=== PATIENT | female | born 1965 | race Hispanic/Latino ===

== ENCOUNTER 2018-02-06 11:36 | Inpatient (IN) | payer BC, OTHER ==
[2018-02-06] MEDS ORDERED: Sodium Chloride 0.9% 1,000 ML IV STA (12:07)
[2018-02-06 12:38] LABS: BASO # 0.1 K/uL (0.0-0.2); BASO % 0.7 % (0.0-2.0); EOS # 0.2 K/uL (0.0-0.7); EOS % 1.7 % (0.0-4.0); HEMOGLOBIN 13.8 g/dL (12.0-16.0); LYMPH # 0.7 K/uL (1.0-4.3); LYMPH % 5.1 % (20.0-40.0); MEAN CELL VOLUME 83.2 fl (81.0-99.0); MEAN CORPUSCULAR HEMOGLOBIN 27.6 pg (27.0-31.0); MEAN CORPUSCULAR HGB CONC 33.2 g/dL (33.0-37.0); MEAN PLATELET VOLUME 8.9 fl (7.2-11.7); MONO # 1.5 K/uL (0.0-0.8); MONO % 10.9 % (0.0-10.0); NEUT # 10.8 K/uL (1.8-7.0); NEUT % 81.6 % (50.0-75.0); PLATELET COUNT 291 K/uL (130-400); RED CELL DISTRIBUTION WIDTH 14.7 % (11.5-14.5); WHITE BLOOD COUNT 13.3 K/uL (4.8-10.8)
[2018-02-06 12:42] LABS: ALB/GLOB RATIO 1.1 (1.0-2.1); ALBUMIN 3.9 g/dL (3.5-5.0); ALT/SGPT 20 U/L (9-52); AST/SGOT 21 U/L (14-36); BLOOD UREA NITROGEN 16 mg/dl (7-17); CALCIUM 9.4 mg/dL (8.4-10.2); GFR NON-AFRICAN AMERICAN > 60; LIPASE 49 U/L (23-300)
--- NOTE | 2018-02-06 13:15 | CT ---
Date of service: 02/06/2018 PROCEDURE: CT HEAD WITHOUT CONTRAST. HISTORY: ?seizure COMPARISON: None available. TECHNIQUE: Axial computed tomography images were obtained through the head/brain without intravenous contrast. Radiation dose: Total exam DLP = 815.74 mGy-cm. This CT exam was performed using one or more of the following dose reduction techniques: Automated exposure control, adjustment of the mA and/or kV according to patient size, and/or use of iterative reconstruction technique. FINDINGS: HEMORRHAGE: No intracranial hemorrhage. BRAIN: Normal corticomedullary differentiation is identified throughout the brain with posterior fossa contents unremarkable. There is no suspicious extra-axial fluid collection. Limited leftward midline shift is identified at the level of the bilateral frontal horns of the lateral ventricles as discussed in ventricular section be low. Etiology may reflect intraventricular cyst right lateral ventricle. No parenchymal edema is identified with brainstem negative appearing. VENTRICLES: There is mild dilatation of the right frontal horn and body of the right lateral ventricle with limited 8 mm leftward midline shift at the level of frontal horns returning to normal at by the posterior portion of the body of the bilateral lateral ventricles with straight represent intraventricular arachnoid cyst or other intraventricular cyst. CALVARIUM: Unremarkable. PARANASAL SINUSES: Unremarkable as visualized. No significant inflammatory changes. MASTOID AIR CELLS: Unremarkable as visualized. No inflammatory changes. OTHER FINDINGS: None. 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 No parenchymal edema. Brain otherwise appears negative. MRI brain without contrast may be utilized for follow-up when feasible.
[2018-02-06] MEDS ORDERED: Potassium Chloride 20 mEq ER Tab PO ONE ×2 (13:33→15:01)
--- NOTE | 2018-02-06 14:00 | RAD ---
Date of service: 02/06/2018 HISTORY: cough COMPARISON: No prior. FINDINGS: LUNGS: No active pulmonary disease. PLEURA: No significant pleural effusion identified, no pneumothorax apparent. CARDIOVASCULAR: No radiographic findings to suggest acute or significant cardiovascular disease. OSSEOUS STRUCTURES: No significant abnormalities. VISUALIZED UPPER ABDOMEN: Normal. OTHER FINDINGS: None. IMPRESSION: No active disease.
[2018-02-06 14:28] LABS: ANISOCYTOSIS SLIGHT; BANDS 1 % (0-2); BASOPHIL 1 % (0-2); EOSINOPHIL 1 % (0-7); LYMPHOCYTE 6 % (20-50); MONOCYTE 10 % (0-10); NEUTROPHIL 80 % (42-75); PLASMACYTES 1 (0-0); PLATELET ESTIMATE NORMAL (NORMAL); TOTAL CELLS COUNTED 100
--- NOTE | 2018-02-06 14:40 | ED PDOC ---
Syncope/Near Syncope/Dizziness Time Seen by Provider: 02/06/18 11:54 Chief Complaint (Nursing): Syncope Chief Complaint (Provider): i passed out, flu like symptoms History Per: Patient History/Exam Limitations: no limitations Onset/Duration Of Symptoms: Gradual Current Symptoms Are (Timing): Intermittent Episodes Activity At Onset Of Symptoms: Had Just Stood up Associated Symptoms Preceding Syncopal Episode: Lightheadedness Possible Causative Factor(s): Lightheaded W/Change In Head Position Fall Associated With With Symptoms: No Injury As Result Of Fall Severity: Moderate Additional Complaint(s): 52yo female hx chronic migranes presents from urgent care after witnessed syncopal episode with possible seizure like activity. She notes congestion, sore throat, generalized weakness and malaise for last 4 days prior, had 2 episodes vomiting over weekend denies diarrhea, neck pain or rash. Notes mild headache but not as severe as prior headaches. Admits to not seeing PMD in awhile, never saw neurology. Believes had MRI brain many years ago for pituitary issue after irregular menses. Past Medical History Reviewed: Historical Data, Nursing Documentation, Vital Signs Vital Signs: Last Vital Signs Temp 98.6 F 02/06/18 11:39 Pulse 74 02/06/18 11:39 Resp 16 02/06/18 11:39 BP 104/79 02/06/18 11:39 Pulse Ox 99 02/06/18 11:39 - Medical History Other PMH: pituitary issues in past? migranes - Family History Family History: States: Unknown Family Hx - Social History Current smoker - smoking cessation education provided: No - Immunization History Hx Tetanus Toxoid Vaccination: No Hx Influenza Vaccination: No Hx Pneumococcal Vaccination: No - Home Medications Home Medications: Ambulatory Orders Medication Instructions Recorded Aspirin/Acetaminophen/Caffeine 2 tab PO DAILY PRN 02/06/18 [Excedrin Migraine Caplet] Multivitamin [Multi-Vitamin Daily] 1 tab PO DAILY 02/06/18 Phenylephrine HCl/Acetaminophn [Eq 2 tab PO Q4 PRN 02/06/18 Suphedrine PE Caplet] - Allergies Allergies/Adverse Reactions: Allergies Allergy/AdvReac Type Severity Reaction Status Date / Time No Known Allergies Allergy Verified 02/06/18 11:39 Review of Systems Constitutional: Positive for: Chills, Weakness, Malaise ENT: Positive for: Throat Pain. Negative for: Throat Swelling Cardiovascular: Negative for: Chest Pain Respiratory: Positive for: Cough. Negative for: Shortness of Breath Gastrointestinal: Positive for: Vomiting. Negative for: Abdominal Pain Genitourinary Female: Negative for: Dysuria, Frequency Musculoskeletal: Positive for: Other (myalgias). Negative for: Neck Pain, Back Pain Neurological: Positive for: Seizures, Altered Mental Status (syncope), Headache, Dizziness. Negative for: Weakness, Incoordination, Change in Speech Psych: Negative for: Suicidal ideation Physical Exam - Reviewed Nursing Documentation Reviewed: Yes Vital Signs Reviewed: Yes - Physical Exam Appears: Positive for: Non-toxic (dry appearing), No Acute Distress Head Exam: Positive for: ATRAUMATIC, NORMAL INSPECTION, NORMOCEPHALIC Skin: Positive for: Normal Color, Warm, DRY Eye Exam: Positive for: EOMI, Normal appearance, PERRL ENT: Positive for: Normal ENT Inspection Neck: Positive for: Normal, Painless ROM Cardiovascular/Chest: Positive for: Regular Rate, Rhythm Respiratory: Positive for: CNT, Normal Breath Sounds Pulses-Radial (L): 3+/4+ Pulses-Radial (R): 3+/4+ Gastrointestinal/Abdominal: Positive for: Soft. Negative for: Tenderness Back: Positive for: Normal Inspection Extremity: Positive for: Normal ROM Neurologic/Psych: Positive for: Alert, Oriented, Cerebellar Tests (slow but intact). Negative for: Motor/Sensory Deficits, Aphasia, Facial Droop - Laboratory Results Result Diagrams: 02/07/18 04:20 02/07/18 04:20 - ECG ECG: Positive for: Interpreted By Me ECG Rhythm: Positive for: Sinus Rhythm, Nonspecific Changes Interpretation Of ECG: frequent PVCs Rate: 69 O2 Sat by Pulse Oximetry: 99 Pulse Ox Interpretation: Normal Medical Decision Making Medical Decision Making: workup for syncope with ?seizure like activity initiated in setting of recent flu like illness Labs reviewed K+ replaced Flu neg Mild elev WBC Cardiac rhythm strip with frequent ectopy CT brain abnormal, d/w Dr Guzmán recommends starting topamax 25mg and admit given abnormal CT brain and possible seizure like activity with syncope D/w Dr Fox contact center associate medicine Disposition - Clinical Impression Clinical Impression: Syncope and collapse, Flu-like symptoms, Hypokalemia - Patient ED Disposition Is Patient to be Admitted: No Counseled Patient/Family Regarding: Studies Performed, Diagnosis, Need For Followup - Disposition Disposition Time: 14:01 Condition: FAIR - Pt Status Changed To: Hospital Disposition Of: Inpatient - Admit Certification Admit to Inpatient:: After my assessment, the patient will require hospitalization for at least two midnights. This is because of the severity of symptoms shown, intensity of services needed, and/or the medical risk in this patient being treated as an outpatient. - POA Present On Arrival: None
[2018-02-06] MEDS ORDERED: Gadodiamide 287 MG/ML VIAL (15ML) IV ONE (15:53)
--- NOTE | 2018-02-06 17:06 | MRI ---
Date of service: 02/06/2018 PROCEDURE: MRI BRAIN WITH AND WITHOUT CONTRAST HISTORY: abnormal CT brain w new onset seizure/syncope COMPARISON: None available. TECHNIQUE: Multiplanar, multisequence MR images of the brain were obtained with and without intravenous contrast enhancement. FINDINGS: HEMORRHAGE: None DWI: No evidence of an acute or early subacute infarction. BRAIN PARENCHYMA: Minimal 8 mm leftward shift of the midline structures at the level of the anterior body of the right lateral ventricle as well as the right frontal horn potentially on the basis of intra-articular arachnoid cyst or congenital anomaly as described below in the ventricle section. The remainder the ventricular system is unremarkable including the 3rd and 4th ventricles. Normal corticomedullary differentiation is appreciated. No suspicious sultana white matter signal abnormality above or below the tentorium including throughout the brainstem. Midline brain anatomy appears grossly nonfocal. There is a nonspecific convex upward border of the pituitary gland, usually seen in younger female patients, however, no abnormal enhancement is seen throughout the pituitary gland as imaged. ENHANCEMENT: No abnormal intracranial enhancement. VENTRICLES: No definite hydrocephalus. There is dilatation of the right frontal horn and proximal to mid body of the right lateral ventricle with the atria appearing symmetric. The right temporal horn appears slightly more prominent than the left. No restricted diffusion is seen related to the right lateral ventricle but there is suggestion of active CSF flow at this region and this may not represent an arachnoid cyst but a congenital anomaly. There is no abnormal intracranial enhancement appreciated throughout the exam. Note, asymmetry in the medial temporal lobes resulting in mild prominence of the right temporal horn may reflect medial temporal sclerosis aside from other findings. No intrinsic signal abnormality is appreciated at the medial right temporal lobe however. CRANIUM: Unremarkable. ORBITS: Grossly unremarkable. PARANASAL SINUSES/MASTOIDS: Clear VASCULAR SYSTEM: Skull base flow voids intact. OTHER FINDINGS: None . 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 Clinically correlate further.
--- NOTE | 2018-02-06 22:22 | CARD ---
APPROVED REPORT Date of service: 02/06/2018 EKG Measurement Heart [id number] <Conclusion> Sinus rhythm with occasional premature ventricular complexes RSR' or QR pattern in V1 suggests right ventricular conduction delay Nonspecific T wave abnormality Prolonged QT Abnormal ECG
[2018-02-06 23:09] LABS: SQUAMOUS EPITHIAL < 1 /hpf (0-5); URINE AMORPHOUS SEDIMENT OCC /ul (<OCC); URINE BACTERIA RARE (<OCC); URINE BILIRUBIN NEGATIVE (NEGATIVE); URINE BLOOD MODERATE (NEGATIVE); URINE CLARITY CLOUDY (Clear); URINE COLOR YELLOW (YELLOW); URINE GLUCOSE (UA) NEG (Normal); URINE LEUKOCYTE ESTERASE NEG Leu/uL (Negative); URINE PROTEIN NEGATIVE (NEGATIVE); URINE UROBILINOGEN 0.2-1.0 mg/dL (0.2-1.0)
[2018-02-07 05:17] LABS: HEMOGLOBIN 13.1 g/dL (12.0-16.0); MEAN CELL VOLUME 84.6 fl (81.0-99.0); MEAN CORPUSCULAR HGB CONC 33.1 g/dL (33.0-37.0); RBC 4.69 Mil/uL (3.80-5.20); RED CELL DISTRIBUTION WIDTH 15.1 % (11.5-14.5); WHITE BLOOD COUNT 8.8 K/uL (4.8-10.8)
[2018-02-07 05:32] LABS: ALB/GLOB RATIO 1.1 (1.0-2.1); ALBUMIN 3.6 g/dL (3.5-5.0); ALT/SGPT 26 U/L (9-52); AST/SGOT 17 U/L (14-36); BLOOD UREA NITROGEN 12 mg/dl (7-17); CALCIUM 9.2 mg/dL (8.4-10.2); GFR NON-AFRICAN AMERICAN > 60; HDL CHOLESTEROL 49 MG/DL (30-70)
[2018-02-07 05:35] LABS: LDL CHOLESTEROL 87 mg/dL (0-129)
--- NOTE | 2018-02-07 08:19 | CP.PCM.HP ---
<Al Giraldo - Last Filed: 02/07/18 13:48> History of Present Illness - History of Present Illness History of Present Illness: 52 yo female hx chronic migranes presents to the ED after witnessed syncopal episode with seizure like activity. She endorsed congestion, sore throat, generalized weakness and malaise for last 4 days, and reported 2 nbnb episodes vomiting over weekend. Otherwise she denies diarrhea, neck pain or rash. Admited to not seeing PMD in a while, never saw neurology in the past. She reports believes had MRI brain many years ago for pituitary issue after irregular menses but unsure, will try to get records. PMD: Pedsneir. PMH: migraine FMH: noncontributory PSH: none NKDA Meds: see bellow. Present on Admission - Present on Admission Any Indicators Present on Admission: No Review of Systems - Review of Systems All systems: reviewed and no additional remarkable complaints except (HPI) Past Patient History - Past Medical History & Family History Past Medical History?: Yes - Past Social History Smoking Status: Never Smoked - HEMATOLOGICAL/ONCOLOGICAL Hx Cancer: Yes (skin cancer left breast area) - MUSCULOSKELETAL/RHEUMATOLOGICAL Hx Falls: Yes - PSYCHIATRIC Hx Substance Use: No - ANESTHESIA Hx Anesthesia: Yes Hx Anesthesia Reactions: No Meds Allergies/Adverse Reactions: Allergies Allergy/AdvReac Type Severity Reaction Status Date / Time No Known Allergies Allergy Verified 02/06/18 11:39 Physical Exam - Constitutional Appears: No Acute Distress - Head Exam Head Exam: NORMAL INSPECTION - Eye Exam Eye Exam: EOMI, PERRL - Respiratory Exam Respiratory Exam: Clear to Auscultation Bilateral - Cardiovascular Exam Cardiovascular Exam: REGULAR RHYTHM, +S1, +S2 - GI/Abdominal Exam GI & Abdominal Exam: Soft. absent: Distended, Tenderness - Extremities Exam Extremities exam: Negative for: calf tenderness, pedal edema - Neurological Exam Neurological exam: Alert, CN II-XII Intact, Oriented x3 - Psychiatric Exam Psychiatric exam: Normal Affect - Skin Skin Exam: Dry, Warm Results - Vital Signs Recent Vital Signs: Last Vital Signs Temp 97.9 F 02/07/18 08:05 Pulse 66 02/07/18 08:05 Resp 18 02/07/18 08:05 BP 149/82 02/07/18 08:05 Pulse Ox 98 02/07/18 08:05 - Labs Result Diagrams: 02/07/18 04:20 02/07/18 04:20 Labs: Laboratory Results - last 24 hr 02/06/18 02/06/18 02/06/18 12:15 12:15 12:15 WBC 13.3 H RBC 5.00 Hgb 13.8 Hct 41.6 MCV 83.2 MCH 27.6 MCHC 33.2 RDW 14.7 H Plt Count 291 MPV 8.9 Neut % (Auto) 81.6 H Lymph % (Auto) 5.1 L Story % (Auto) 10.9 H Eos % (Auto) 1.7 Baso % (Auto) 0.7 Neut # (Auto) 10.8 H Lymph # (Auto) 0.7 L Story # (Auto) 1.5 H Eos # (Auto) 0.2 Baso # (Auto) 0.1 Neutrophils % (Manual) 80 H Band Neutrophils % 1 Lymphocytes % (Manual) 6 L Monocytes % (Manual) 10 Eosinophils % (Manual) 1 Basophils % (Manual) 1 Plasma Cell % (Manual) 1 H Platelet Estimate Normal Anisocytosis (manual) Slight Sodium 138 Potassium 3.2 L Chloride 105 Carbon Dioxide 25 Anion Gap 11 BUN 16 Creatinine 0.6 L Est GFR ( Amer) > 60 Est GFR (Non-Af Amer) > 60 POC Glucose (mg/dL) Random Glucose 133 H Calcium 9.4 Phosphorus Magnesium 2.0 Total Bilirubin 0.5 AST 21 ALT 20 Alkaline Phosphatase 76 Total Creatine Kinase 35 Total Protein 7.2 Albumin 3.9 Globulin 3.4 Albumin/Globulin Ratio 1.1 Triglycerides Cholesterol LDL Cholesterol Direct HDL Cholesterol Lipase 49 Vitamin B12 TSH 3rd Generation Urine Color Urine Clarity Urine pH Ur Specific [place] Urine Protein Urine Glucose (UA) Urine Ketones Urine Blood Urine Nitrate Urine Bilirubin Urine Urobilinogen Ur Leukocyte Esterase Urine RBC (Auto) Urine Microscopic WBC Ur Squamous Epith Cells Amorphous Sediment Urine Bacteria Influenza Typ A,B (EIA) Negative for flu a/b 02/06/18 02/06/18 02/07/18 12:29 22:53 04:20 WBC 8.8 RBC 4.69 Hgb 13.1 Hct 39.7 MCV 84.6 MCH 28.0 MCHC 33.1 RDW 15.1 H Plt Count 289 MPV Neut % (Auto) Lymph % (Auto) Story % (Auto) Eos % (Auto) Baso % (Auto) Neut # (Auto) Lymph # (Auto) Story # (Auto) Eos # (Auto) Baso # (Auto) Neutrophils % (Manual) Band Neutrophils % Lymphocytes % (Manual) Monocytes % (Manual) Eosinophils % (Manual) Basophils % (Manual) Plasma Cell % (Manual) Platelet Estimate Anisocytosis (manual) Sodium Potassium Chloride Carbon Dioxide Anion Gap BUN Creatinine Est GFR ( Amer) Est GFR (Non-Af Amer) POC Glucose (mg/dL) 134 H Random Glucose Calcium Phosphorus Magnesium Total Bilirubin AST ALT Alkaline Phosphatase Total Creatine Kinase Total Protein Albumin Globulin Albumin/Globulin Ratio Triglycerides Cholesterol LDL Cholesterol Direct HDL Cholesterol Lipase Vitamin B12 TSH 3rd Generation Urine Color Yellow Urine Clarity Cloudy Urine pH 8.0 Ur Specific [place] 1.010 Urine Protein Negative Urine Glucose (UA) Neg Urine Ketones Negative Urine Blood Moderate Urine Nitrate Negative Urine Bilirubin Negative Urine Urobilinogen 0.2-1.0 Ur Leukocyte Esterase Neg Urine RBC (Auto) 11 H Urine Microscopic WBC 4 Ur Squamous Epith Cells < 1 Amorphous Sediment Occ H Urine Bacteria Rare Influenza Typ A,B (EIA) 02/07/18 04:20 WBC RBC Hgb Hct MCV MCH MCHC RDW Plt Count MPV Neut % (Auto) Lymph % (Auto) Story % (Auto) Eos % (Auto) Baso % (Auto) Neut # (Auto) Lymph # (Auto) Story # (Auto) Eos # (Auto) Baso # (Auto) Neutrophils % (Manual) Band Neutrophils % Lymphocytes % (Manual) Monocytes % (Manual) Eosinophils % (Manual) Basophils % (Manual) Plasma Cell % (Manual) Platelet Estimate Anisocytosis (manual) Sodium 140 Potassium 3.7 Chloride 108 H Carbon Dioxide 28 Anion Gap 8 L BUN 12 Creatinine 0.7 Est GFR ( Amer) > 60 Est GFR (Non-Af Amer) > 60 POC Glucose (mg/dL) Random Glucose 98 Calcium 9.2 Phosphorus 3.5 Magnesium 2.1 Total Bilirubin 0.4 AST 17 ALT 26 Alkaline Phosphatase 68 Total Creatine Kinase Total Protein 6.8 Albumin 3.6 Globulin 3.2 Albumin/Globulin Ratio 1.1 Triglycerides 84 Cholesterol 165 LDL Cholesterol Direct 87 HDL Cholesterol 49 Lipase Vitamin B12 657 TSH 3rd Generation 1.65 Urine Color Urine Clarity Urine pH Ur Specific [place] Urine Protein Urine Glucose (UA) Urine Ketones Urine Blood Urine Nitrate Urine Bilirubin Urine Urobilinogen Ur Leukocyte Esterase Urine RBC (Auto) Urine Microscopic WBC Ur Squamous Epith Cells Amorphous Sediment Urine Bacteria Influenza Typ A,B (EIA) Assessment & Plan - Assessment and Plan (Free Text) Assessment: 52 yo female patient with PMH of chronic migranes admitted due to syncope episode and seizure like episode. Plan: - admit to tele - continue plan as ordered - Neurology consulted, f/u recommds - Cardiology consulted f/u recommds - f/u labs and A1C in am Case discussed with Dr Fox. <Holger Fox - Last Filed: 02/08/18 03:17> Results - Vital Signs Recent Vital Signs: Last Vital Signs Temp 98.1 F 02/07/18 16:31 Pulse 74 02/07/18 16:31 Resp 16 02/07/18 16:31 BP 141/80 02/07/18 16:31 Pulse Ox 97 02/07/18 16:31 - Labs Result Diagrams: 02/07/18 04:20 02/07/18 04:20 Labs: Laboratory Results - last 24 hr 02/07/18 02/07/18 02/07/18 04:20 04:20 07:56 WBC 8.8 RBC 4.69 Hgb 13.1 Hct 39.7 MCV 84.6 MCH 28.0 MCHC 33.1 RDW 15.1 H Plt Count 289 Sodium 140 Potassium 3.7 Chloride 108 H Carbon Dioxide 28 Anion Gap 8 L BUN 12 Creatinine 0.7 Est GFR ( Amer) > 60 Est GFR (Non-Af Amer) > 60 Random Glucose 98 Hemoglobin A1c 5.3 Calcium 9.2 Phosphorus 3.5 Magnesium 2.1 Total Bilirubin 0.4 AST 17 ALT 26 Alkaline Phosphatase 68 Total Protein 6.8 Albumin 3.6 Globulin 3.2 Albumin/Globulin Ratio 1.1 Triglycerides 84 Cholesterol 165 LDL Cholesterol Direct 87 HDL Cholesterol 49 Vitamin B12 657 TSH 3rd Generation 1.65 Assessment & Plan - Assessment and Plan (Free Text) Assessment: Patient was personally seen and examined by me in rounds with residents. Available labs and diagnostic data reviewed. Case, Patient's condition and management plan discussed with residents in rounds. Agree with resident's progress note. Plan: As ordered.
[2018-02-07] MEDS ORDERED: Multivitamin With Minerals Tab PO SCH (09:00)
[2018-02-07] MEDS: Enoxaparin 40 mg Syringe SC SCH ×2 (09:45→09:47)
--- NOTE | 2018-02-07 13:10 | CP.PCM.CON ---
History of Present Illness - History of Present Illness History of Present Illness: Consultation for evaluation of episode of syncope in MD office HPI: 52 year old otherwise healthy white female who walked over 8 blocks in [place] to visit her PCP where she had an episode of diaphoretic spell accompanied with a feeling of heat going thru her and made her pass out. Review of Systems - Review of Systems Systems not reviewed;Unavailable: Acuity of Condition - Constitutional Constitutional: As Per HPI - EENT Eyes: As Per HPI Nose/Mouth/Throat: As Per HPI - Breasts Breasts: As Per HPI - Cardiovascular Cardiovascular: As Per HPI - Respiratory Respiratory: As Per HPI - Gastrointestinal Gastrointestinal: As Per HPI - Genitourinary Genitourinary: As Per HPI - Menstruation Menstruation: As Per HPI - Musculoskeletal Musculoskeletal: As Per HPI - Integumentary Integumentary: As Per HPI - Neurological Neurological: As Per HPI - Psychiatric Psychiatric: As Per HPI - Endocrine Endocrine: As Per HPI - Hematologic/Lymphatic Hematologic: As Per HPI Past Patient History - Past Medical History & Family History Past Medical History?: Yes - Past Social History Smoking Status: Never Smoked - HEMATOLOGICAL/ONCOLOGICAL Hx Cancer: Yes (skin cancer left breast area) - MUSCULOSKELETAL/RHEUMATOLOGICAL Hx Falls: Yes - PSYCHIATRIC Hx Substance Use: No - ANESTHESIA Hx Anesthesia: Yes Hx Anesthesia Reactions: No Meds Allergies/Adverse Reactions: Allergies Allergy/AdvReac Type Severity Reaction Status Date / Time No Known Allergies Allergy Verified 02/06/18 11:39 - Medications Medications: Current Medications Acetaminophen (Tylenol 325mg Tab) 650 mg PO Q6 PRN PRN Reason: Headache Enoxaparin Sodium (Lovenox) 40 mg SC DAILY RADHA; Protocol Last Admin: 02/07/18 09:47 Dose: Not Given Multivitamins/Minerals (Therapeutic-M Tab) 1 tab PO DAILY RADHA Last Admin: 02/07/18 09:45 Dose: 1 tab Physical Exam - Constitutional Appears: Well - Head Exam Head Exam: ATRAUMATIC, NORMAL INSPECTION, NORMOCEPHALIC - Eye Exam Eye Exam: EOMI, Normal appearance, PERRL Pupil Exam: NORMAL ACCOMODATION, PERRL - ENT Exam ENT Exam: Mucous Membranes Moist, Normal Exam - Neck Exam Neck exam: Positive for: Normal Inspection - Respiratory Exam Respiratory Exam: Clear to Auscultation Bilateral, NORMAL BREATHING PATTERN - Cardiovascular Exam Cardiovascular Exam: REGULAR RHYTHM, RRR, +S1, +S2, Systolic Murmur - GI/Abdominal Exam GI & Abdominal Exam: Normal Bowel Sounds, Soft. absent: Tenderness - Extremities Exam Extremities exam: Positive for: normal inspection - Back Exam Back exam: NORMAL INSPECTION - Neurological Exam Neurological exam: Alert, CN II-XII Intact, Normal Gait, Oriented x3, Reflexes Normal - Psychiatric Exam Psychiatric exam: Normal Affect, Normal Mood - Skin Skin Exam: Dry, Intact, Normal Color, Warm Results - Vital Signs Recent Vital Signs: Last Vital Signs Temp 98.2 F 02/07/18 12:29 Pulse 65 02/07/18 12:29 Resp 18 02/07/18 12:29 BP 149/88 02/07/18 12:29 Pulse Ox 95 02/07/18 12:29 - Labs Result Diagrams: 02/07/18 04:20 02/07/18 04:20 Labs: Laboratory Results - last 24 hr 02/06/18 02/06/18 02/07/18 12:15 22:53 04:20 WBC 8.8 RBC 4.69 Hgb 13.1 Hct 39.7 MCV 84.6 MCH 28.0 MCHC 33.1 RDW 15.1 H Plt Count 289 Neutrophils % (Manual) 80 H Band Neutrophils % 1 Lymphocytes % (Manual) 6 L Monocytes % (Manual) 10 Eosinophils % (Manual) 1 Basophils % (Manual) 1 Plasma Cell % (Manual) 1 H Platelet Estimate Normal Anisocytosis (manual) Slight Sodium Potassium Chloride Carbon Dioxide Anion Gap BUN Creatinine Est GFR ( Amer) Est GFR (Non-Af Amer) Random Glucose Hemoglobin A1c Calcium Phosphorus Magnesium Total Bilirubin AST ALT Alkaline Phosphatase Total Protein Albumin Globulin Albumin/Globulin Ratio Triglycerides Cholesterol LDL Cholesterol Direct HDL Cholesterol Vitamin B12 TSH 3rd Generation Urine Color Yellow Urine Clarity Cloudy Urine pH 8.0 Ur Specific [place] 1.010 Urine Protein Negative Urine Glucose (UA) Neg Urine Ketones Negative Urine Blood Moderate Urine Nitrate Negative Urine Bilirubin Negative Urine Urobilinogen 0.2-1.0 Ur Leukocyte Esterase Neg Urine RBC (Auto) 11 H Urine Microscopic WBC 4 Ur Squamous Epith Cells < 1 Amorphous Sediment Occ H Urine Bacteria Rare 02/07/18 02/07/18 04:20 07:56 WBC RBC Hgb Hct MCV MCH MCHC RDW Plt Count Neutrophils % (Manual) Band Neutrophils % Lymphocytes % (Manual) Monocytes % (Manual) Eosinophils % (Manual) Basophils % (Manual) Plasma Cell % (Manual) Platelet Estimate Anisocytosis (manual) Sodium 140 Potassium 3.7 Chloride 108 H Carbon Dioxide 28 Anion Gap 8 L BUN 12 Creatinine 0.7 Est GFR ( Amer) > 60 Est GFR (Non-Af Amer) > 60 Random Glucose 98 Hemoglobin A1c 5.3 Calcium 9.2 Phosphorus 3.5 Magnesium 2.1 Total Bilirubin 0.4 AST 17 ALT 26 Alkaline Phosphatase 68 Total Protein 6.8 Albumin 3.6 Globulin 3.2 Albumin/Globulin Ratio 1.1 Triglycerides 84 Cholesterol 165 LDL Cholesterol Direct 87 HDL Cholesterol 49 Vitamin B12 657 TSH 3rd Generation 1.65 Urine Color Urine Clarity Urine pH Ur Specific [place] Urine Protein Urine Glucose (UA) Urine Ketones Urine Blood Urine Nitrate Urine Bilirubin Urine Urobilinogen Ur Leukocyte Esterase Urine RBC (Auto) Urine Microscopic WBC Ur Squamous Epith Cells Amorphous Sediment Urine Bacteria Assessment & Plan (1) Syncope Assessment and Plan: etiology vasovagal orthostatics echo if echo normal can dc home outpt holter monitor Status: Acute (2) URI (upper respiratory infection) Status: Acute
[2018-02-07 16:32] VITALS: BP 141/80; PULSE 74; RESP 16; TEMP 98.1; O2SAT 97
--- NOTE | 2018-02-07 19:51 | CP.PCM.CON ---
History of Present Illness - History of Present Illness History of Present Illness: Neurology Consultation Note: Mrs. Hu is a 52-year-old woman with a past medical history of migraine headaches, who presented to the ED after an episode of loss of consciousness and witnessed seizure-like activity. She states that she went to her PCP's office and was feeling unwell. She sat down in the office and asked for a cup of water, she then dropped the cup, and lost consciousness and was witnessed having a seizure. She did not have any urinary/bowel incontinence or tongue biting. When she woke up both firsts were clenched. 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 She was started on Topamax since she also has a history of migraine and she may have had a seizure. Review of Systems - Constitutional Constitutional: As Per HPI - EENT Eyes: absent: As Per HPI, Blind Spots, Blurred Vision, Change in Vision, Decreased Night Vision, Diplopia, Discharge, Dry Eye, Exophthalmos, Floaters, Irritation, Itchy Eyes, Loss of Peripheral Vision, Pain, Photophobia, Requires Corrective Lenses, Sees Flashes, Spots in Vision, Tunnel Vision, Other Visual Disturbances, Loss of Vision, Other Ears: absent: As Per HPI, Decreased Hearing, Ear Discharge, Ear Pain, Tinnitus, Abnormal Hearing, Disequilibrium, Dizziness, Other Nose/Mouth/Throat: absent: As Per HPI, Epistaxis, Nasal Congestion, Nasal Discharge, Nasal Obstruction, Nasal Trauma, Nose Pain, Post Nasal Drip, Sinus Pain, Sinus Pressure, Bleeding Gums, Change in Voice, Dental Pain, Dry Mouth, Dysphagia, Halitosis, Hoarsness, Lip Swelling, Mouth Lesions, Mouth Pain, Odynophagia, Sore Throat, Throat Swelling, Tongue Swelling, Facial Pain, Neck Pain, Neck Mass, Other - Cardiovascular Cardiovascular: absent: As Per HPI, Acrocyanosis, Chest Pain, Chest Pain at Rest, Chest Pain with Activity, Claudication, Diaphoresis, Dyspnea, Dyspnea on Exertion, Edema, Irregular Heart Rhythm, Pain Radiating to Arm/Neck/Jaw, Leg Edema, Leg Ulcers, Lightheadedness, Orthopnea, Palpitations, Paroxysmal Nocturnal Dyspnea, Pedal Edema, Radiating Pain, Rapid Heart Rate, Slow Heart Ra te, Syncope, Other - Respiratory Respiratory: absent: As Per HPI, Cough, Dyspnea, Hemoptysis, Dyspnea on Exertion, Wheezing, Snoring, Stridor, Pain on Inspiration, Chest Congestion, Excessive Mucous Production, Change in Mucous Color, Pain with Coughing, Other - Gastrointestinal Gastrointestinal: absent: As Per HPI, Abdominal Pain, Belching, Bloating, Change in Bowel Habits, Change in Stool Character, Coffee Ground Emesis, Constipation, Cramping, Diarrhea, Dyspepsia, Dysphagia, Early Satiety, Excessive Flatus, Fecal Incontinence, Heartburn, Hematemesis, Hematochezia, Loose Stools, Melena, Nausea, Odynophagia, Temesmus, Vomiting, Other - Genitourinary Genitourinary: absent: As Per HPI, Change in Urinary Stream, Difficulty Urinating, Dysuria, Flank Pain, Hematuria, Pyuria, Nocturia, Urinary Incontinence, Urinary Frequency, Urinary Hesitance, Urinary Urgency, Voiding Freq/Small Amts, Freq UTI, Hx Renal/Bladder Calculi, Hx /Renal Surgery, Bladder Distension, Other - Musculoskeletal Musculoskeletal: absent: As Per HPI, Abnormal Gait, Arthralgias, Atrophy, Back Pain, Deformity, Joint Swelling, Limited Range of Motion, Loss of Height, Muscle Cramps, Muscle Weakness, Myalgias, Neck Pain, Numbness, Radiating Pain into Limb, Stiffness, Tingling, Other - Integumentary Integumentary: absent: As Per HPI, Acne, Alopecia, Bleeding Lesions, Change in Hair, Change in Nails, Change in Pigmentation, Changing Lesions, Dry Skin, Erythema, Furuncle, Hirsutism, Lesions, New Lesions, Non-Healing Lesions, Photosensitivity, Pruritus, Rash, Skin Pain, Skin Ulcer, Sores, Striae, Swelling, Unusual Bruising, Wounds, Jaundice, Other - Neurological Neurological: As Per HPI - Psychiatric Psychiatric: absent: As Per HPI, Abnormal Sleep Pattern, Anhedonia, Anxiety, Auditory Hallucinations, Behavioral Changes, Change in Appetite, Change in Libido, Confusion, Depression, Difficulty Concentrating, Hallucinations, Homicidal Ideation, Hopelessness, Irritability, Memory Loss, Mood Swings, Panic Attacks, Paranoia, Suicidal Ideation, Visual Hallucinations, Tactile Hallucinations, Other - Endocrine Endocrine: absent: As Per HPI, Change in Body Appearance, Change in Libido, Cold Intolorance, Deepening of Voice, Excessive Sweating, Fatigue, Flushing, Heat Intolorance, Increase in Ring/Shoe/Hat Size, Palpitations, Polydipsia, Polyphagia, Polyuria, Other - Hematologic/Lymphatic Hematologic: absent: As Per HPI, Easy Bleeding, Easy Bruising, Lymphadenopathy, Other Past Patient History - Past Medical History & Family History Past Medical History?: Yes - Past Social History Smoking Status: Never Smoked - HEMATOLOGICAL/ONCOLOGICAL Hx Cancer: Yes (skin cancer left breast area) - MUSCULOSKELETAL/RHEUMATOLOGICAL Hx Falls: Yes - PSYCHIATRIC Hx Substance Use: No - ANESTHESIA Hx Anesthesia: Yes Hx Anesthesia Reactions: No Meds Allergies/Adverse Reactions: Allergies Allergy/AdvReac Type Severity Reaction Status Date / Time No Known Allergies Allergy Verified 02/06/18 11:39 - Medications Medications: Current Medications Acetaminophen (Tylenol 325mg Tab) 650 mg PO Q6 PRN PRN Reason: Headache Enoxaparin Sodium (Lovenox) 40 mg SC DAILY RADHA; Protocol Last Admin: 02/07/18 09:47 Dose: Not Given Multivitamins/Minerals (Therapeutic-M Tab) 1 tab PO DAILY RADHA Last Admin: 02/07/18 09:45 Dose: 1 tab Physical Exam - Constitutional Appears: Well - Head Exam Head Exam: ATRAUMATIC, NORMAL INSPECTION, NORMOCEPHALIC - Eye Exam Eye Exam: EOMI, Normal appearance, PERRL - ENT Exam ENT Exam: Mucous Membranes Moist, Normal Exam - Neck Exam Neck exam: Positive for: Normal Inspection - Cardiovascular Exam Cardiovascular Exam: REGULAR RHYTHM - GI/Abdominal Exam GI & Abdominal Exam: Normal Bowel Sounds, Soft. absent: Tenderness - Rectal Exam Rectal Exam: Deferred - Back Exam Back exam: NORMAL INSPECTION - Neurological Exam Neurological exam: Alert, CN II-XII Intact, Normal Gait, Oriented x3, Reflexes Normal - Psychiatric Exam Psychiatric exam: Normal Affect, Normal Mood - Skin Skin Exam: Dry, Intact, Normal Color, Warm Results - Vital Signs Recent Vital Signs: Last Vital Signs Temp 98.1 F 02/07/18 16:31 Pulse 74 02/07/18 16:31 Resp 16 02/07/18 16:31 BP 141/80 02/07/18 16:31 Pulse Ox 97 02/07/18 16:31 - Labs Result Diagrams: 02/07/18 04:20 02/07/18 04:20 Labs: Laboratory Results - last 24 hr 02/06/18 02/07/18 02/07/18 22:53 04:20 04:20 WBC 8.8 RBC 4.69 Hgb 13.1 Hct 39.7 MCV 84.6 MCH 28.0 MCHC 33.1 RDW 15.1 H Plt Count 289 Sodium 140 Potassium 3.7 Chloride 108 H Carbon Dioxide 28 Anion Gap 8 L BUN 12 Creatinine 0.7 Est GFR ( Amer) > 60 Est GFR (Non-Af Amer) > 60 Random Glucose 98 Hemoglobin A1c Calcium 9.2 Phosphorus 3.5 Magnesium 2.1 Total Bilirubin 0.4 AST 17 ALT 26 Alkaline Phosphatase 68 Total Protein 6.8 Albumin 3.6 Globulin 3.2 Albumin/Globulin Ratio 1.1 Triglycerides 84 Cholesterol 165 LDL Cholesterol Direct 87 HDL Cholesterol 49 Vitamin B12 657 TSH 3rd Generation 1.65 Urine Color Yellow Urine Clarity Cloudy Urine pH 8.0 Ur Specific [place] 1.010 Urine Protein Negative Urine Glucose (UA) Neg Urine Ketones Negative Urine Blood Moderate Urine Nitrate Negative Urine Bilirubin Negative Urine Urobilinogen 0.2-1.0 Ur Leukocyte Esterase Neg Urine RBC (Auto) 11 H Urine Microscopic WBC 4 Ur Squamous Epith Cells < 1 Amorphous Sediment Occ H Urine Bacteria Rare 02/07/18 07:56 WBC RBC Hgb Hct MCV MCH MCHC RDW Plt Count Sodium Potassium Chloride Carbon Dioxide Anion Gap BUN Creatinine Est GFR ( Amer) Est GFR (Non-Af Amer) Random Glucose Hemoglobin A1c 5.3 Calcium Phosphorus Magnesium Total Bilirubin AST ALT Alkaline Phosphatase Total Protein Albumin Globulin Albumin/Globulin Ratio Triglycerides Cholesterol LDL Cholesterol Direct HDL Cholesterol Vitamin B12 TSH 3rd Generation Urine Color Urine Clarity Urine pH Ur Specific [place] Urine Protein Urine Glucose (UA) Urine Ketones Urine Blood Urine Nitrate Urine Bilirubin Urine Urobilinogen Ur Leukocyte Esterase Urine RBC (Auto) Urine Microscopic WBC Ur Squamous Epith Cells Amorphous Sediment Urine Bacteria Assessment & Plan (1) Seizure Assessment and Plan: With evidence of mesial temporal lobe sclerosis as well as other abnormalities on MRI, and history of seizure the patient should be started on an AED. Since she has migraine history, I recommend starting Topamax 25 mg BID and she will obtain an EEG as an outpatient. She was given my contact info to schedule an appointment in two weeks. Thank you. Status: Acute
== END 2018-02-07 21:10 | disposition left against medical advice (07) | DRG 312 ==
LOC: H.ER 11:36 → H.ERHOLD 14:33 → H.TEL 18:29
PROVIDERS: ADMIT Internal Medicine; ATTEND Internal Medicine
DX: R55 Syncope and collapse (principal); R56.9 Unspecified convulsions; Z85.828 Personal history of other malignant neoplasm of skin; J02.9 Acute pharyngitis, unspecified; E87.6 Hypokalemia; G43.909 Migraine, unspecified, not intractable, without status migrainosus; J06.9 Acute upper respiratory infection, unspecified